=== PATIENT | male | born 1960 | race Caucasian/White ===

== ENCOUNTER 2019-08-31 10:06 | Emergency (ER) | payer BC, SELFPAY ==
[2019-08-31] VITALS (7 sets, daily range): BP systolic 90–152; BP diastolic 64–90; PULSE 71–78; RESP 18; TEMP 37.3; O2SAT 98
--- NOTE | 2019-08-31 10:24 | ED.GENADULT ---
HPI - General Adult General Chief complaint: Upper Respiratory Infection Stated complaint: Congestion Time Seen by Provider: 08/31/19 10:24 Source: patient and RN notes reviewed Mode of arrival: ambulatory Limitations: no limitations History of Present Illness HPI narrative: 58-year-old male presents with complaints of upper respiratory infection, facial congestion, facial pressure, and intermittent headache (not the worst of his life) for the past 11 days. Nyquil without relief. Symptoms increased over the last 24 hours with fatigue and dizziness. No facial swelling. Dry cough. Nasal congestion and rhinorrhea. No sore throat. No high fevers, drooling, neck or throat swelling. No voice change. Nausea and vomiting (last episode this morning approximately @08:30/09:00) without blood or coffee ground contents. No abdominal pain or diarrhea. Tolerating liquids well. Denies chills, dyspnea, difficulty swallowing, jaw pain, dental pain, foreign body sensation, and rash. No chest pain or shortness of breath. Remains active. Complains of dizziness that has been gone on for 1 day. Symptoms increased today. No treatment. Exacerbating factors consist of changing position too fast turning head from side to side too fast. Relieving factors is sitting still. Denies ear pain, ear itching, ear trauma, trauma to head, syncopal episodes, altered vision, altered speech, confusion, or seizure activity. Denies numbness or tingling in extremities. Denies chest pain or dyspnea. Denies fever or chills. Nausea and vomiting (last episode this morning approximately @08:30/09:00) without blood or coffee ground contents. No abdominal pain or diarrhea. Tolerating p.o. intake well. Remains active. Some parts of this dictation were generated by voice recognition software and may contain typographical and/or grammatical inaccuracies. Onset (ago): day(s) (11) Location: head and face Radiation: non-radiation Severity: moderate Severity scale (1-10): 10 Quality: constant and other (pressure) Pain Consistency: constant Exacerbating factors: other (palpation) Associated symptoms: cough, headaches and other (fatigue) Treatments prior to arrival: other (Nyquil) Related Data Home Medications Medication Instructions Recorded Confirmed lisinopril 08/31/19 oseltamivir mg 08/31/19 Allergies Allergy/AdvReac Type Severity Reaction Status Date / Time Neoprene Allergy Mild Uncoded 08/31/19 10:21 Processed Meats Allergy Mild Uncoded 08/31/19 10:21 Review of Systems Review of Systems: Narrative: CONSTITUTIONAL: Complains of fatigue. Denies fever, chills, sweats. EYES: Denies visual changes, redness, discharge. ENT: Complains of rhinorrhea, congestion, facial congestion and pressure. Denies sore throat, otalgia. CARDIOVASCULAR: Denies chest pain, palpitations, edema. RESPIRATORY: Denies dyspnea, wheezing. Complains of dry cough/intermittent productive cough. GASTROINTESTINAL: Denies abdominal pain, diarrhea. Complains of nausea, vomiting GENITOURINARY: Denies dysuria, hematuria, abnormal discharge SKIN: Denies rash or itching. MUSCULOSKELETAL: Denies acute back pain, joint pain, or myalgia. NEUROLOGIC: Denies numbness, or focal weakness. Complains of dizziness and intermittent DAVE. PSYCHIATRIC: Denies anxiety or depression. [facility] Past Medical History Medical History (Updated 08/31/19 @ 12:29 by BESSY Chance) History of gastroesophageal reflux (GERD) Hypertension Surgical History Surgical History (Updated 08/31/19 @ 12:29 by BESSY Chance) Hx of reconstruction of anterior cruciate ligament tear Left Family History Family History (Updated 08/31/19 @ 12:31 by BESSY Chance) Other No significant family history Social History Social History (Updated 08/31/19 @ 12:32 by BESSY Chance) Smoking status: Light tobacco smoker Tobacco type: cigars Second hand tobacco smoke exposure: No Alcohol
--- NOTE | 2019-08-31 10:54 | ECG_ITS ---
Measurements Intervals [place] Rate: 71 P: 54 VA: 178 QRS: 29 QRSD: 100 T: 28 QT: 408 QTc: 444 Interpretive Statements SINUS RHYTHM BASELINE ARTIFACT- I, III, AVL, AVF NORMAL ECG Electronically Signed On 08-31-2019 12:21:59 CDT by Juan Vines D.O.
[2019-08-31] MEDS: ONDANSETRON HCL ODT 4 MG TABLET PO (11:01)
[2019-08-31] MEDS: MECLIZINE HCL 25 MG TABLET PO (11:01)
--- NOTE | 2019-08-31 11:24 | PC.NURSE ---
Resting quietly after Zofran and Meclizine given. No further nausea or emesis.
[2019-09-01 10:25] LABS: Glucose Point of Care 101 (65-105)
== END 2019-08-31 11:45 | disposition home or self-care (01) ==
PROVIDERS: Emergency Provider Nurse Practitioner Family
DX: H81.10 Benign paroxysmal vertigo, unspecified ear (principal); J01.10 Acute frontal sinusitis, unspecified; F17.290 Nicotine dependence, other tobacco product, uncomplicated; K21.9 Gastro-esophageal reflux disease without esophagitis; I10 Essential (primary) hypertension
CPT/HCPCS: 82948; 93005; 99213; A9270; G0463

== ENCOUNTER 2021-07-11 22:12 | Emergency (ER) | payer BC, SELFPAY ==
[2021-07-11 22:15] VITALS: BP 117/71; PULSE 117; RESP 20; TEMP 36.4; O2SAT 96
--- NOTE | 2021-07-11 22:27 | ED.ALLEREA ---
HPI - Allergic Reaction General Chief complaint: Allergic Reaction Stated complaint: allergic reaction Time Seen by Provider: 07/11/21 22:27 Source: patient Mode of arrival: ambulatory Limitations: no limitations History of Present Illness HPI narrative: Patient is a 60-year-old male complaining of rash all over accompanied by itching and feels like my throat is tight that started tonight after eating barbecue meat. Patient states that rash and itchiness would occasionally occur when he eats barbecue meat, but when he takes Benadryl it would resolve but this time persisted. Patient denies any lip, tongue or throat swelling. Patient denies any chest pain or shortness of breath. Related Data Home Medications Medication Instructions Recorded Confirmed lisinopril 08/31/19 oseltamivir mg 08/31/19 Allergies Allergy/AdvReac Type Severity Reaction Status Date / Time Neoprene Allergy Mild Other Uncoded 07/11/21 22:19 Processed Meats Allergy Mild Other Uncoded 07/11/21 22:19 Review of Systems Review of Systems: All systems reviewed & are unremarkable except as noted in HPI and below Constitutional: Constitutional: Denies body ache(s), Denies chills, Denies excessive sweating, Denies fatigue, Denies fever(s), Denies headache(s), Denies lethargy, Denies malaise, Denies weakness and Denies weight loss Eyes: Eyes: Denies blurry vision, Denies change in vision and Denies loss of vision ENT: Denies dizziness, Denies ear discharge, Denies headache(s), Denies lip swelling, Denies epistaxis, Denies nasal congestion, Denies neck pain, Denies throat swelling and Denies tongue swelling Cardiovascular: Cardiovascular: Denies chest pain, Denies chest pain at rest, Denies chest pain with activity, Denies diaphoresis, Denies rapid heart rate, Denies edema, Denies irregular heart rhythm, Denies lightheadedness, Denies palpitations, Denies dyspnea and Denies dyspnea on exertion Respiratory: Respiratory: Denies chest congestion, Denies cough, Denies hemoptysis, Denies dyspnea and Denies dyspnea on exertion Gastrointestinal: Gastrointestinal: Denies abdominal pain, Denies melena, Denies hematochezia, Denies diarrhea, Denies nausea, Denies vomiting and Denies hematemesis Musculoskeletal: Musculoskeletal: Denies abnormal gait, Denies deformity, Denies joint swelling, Denies limited range of motion, Denies neck pain and Denies numbness Neurologic: Denies Abnormal speech present, Denies abnormal gait, Denies confusion, Denies dizziness, Denies headache(s), Denies focal weakness, Denies loss of vision, Denies numbness, Denies Other visual disturbances, Denies Sensory deficit (Neuro) and Denies weakness Psychiatric: Psychiatric: Denies confusion, Denies depression, Denies auditory hallucinations, Denies homicidal ideation and Denies suicidal ideation Endocrine: Endocrine: Denies cold intolerance, Denies excessive sweating, Denies fatigue, Denies heat intolerance and Denies palpitations Hematologic/Lymphatic: Hematologic/Lymphatic: Denies easy bleeding and Denies easy bruising Allergic/Immunologic: Allergic/Immunologic: Denies lip swelling, Denies throat swelling and Denies tongue swelling PMFSH Past Medical History Medical History History of gastroesophageal reflux (GERD) Hypertension Surgical History Surgical History Hx of reconstruction of anterior cruciate ligament tear Left Family History Family History Other No significant family history Social History Social History Smoking status: Light tobacco smoker Tobacco type: cigars Second hand tobacco smoke exposure: No Alcohol intake: current Alcohol use details: Occasional Substance use: never 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
[2021-07-11] MEDS: FAMOTIDINE 20 MG/2 ML VIAL IV PUSH (22:46)
[2021-07-11] MEDS: diphenhydrAMINE HCl INJ 50 MG/ML VIAL 25 MG IV PUSH (22:46)
[2021-07-11] MEDS: methylPREDNISolone SOD SUCC 125 MG VIAL IV PUSH (22:46)
[2021-07-11] MEDS: EPINEPHrine HCL INJ 1 MG/ML AMPUL 0.3 MG SUB-Q (22:52)
[2021-07-11 23:01] VITALS: BP 127/68; PULSE 67; RESP 18; O2SAT 99
[2021-07-11 23:13] VITALS: BP 125/88; PULSE 68; RESP 15; O2SAT 97
== END 2021-07-11 23:26 | disposition home or self-care (01) ==
LOC: ANHED 22:36
PROVIDERS: Emergency Provider Emergency Medicine
DX: T78.40XA Allergy, unspecified, initial encounter (principal); K21.9 Gastro-esophageal reflux disease without esophagitis; I10 Essential (primary) hypertension; F17.290 Nicotine dependence, other tobacco product, uncomplicated
CPT/HCPCS: 96372; 96374; 96375; 99284; J0171; J1200; J2930

== ENCOUNTER 2024-01-13 08:02 | Emergency (ER) | payer BC, SELFPAY ==
--- NOTE | 2024-01-13 08:23 | ED.SKABFB ---
HPI - Skin/Abscess/Foreign Bdy General Chief complaint: Skin/Abscess/Foreign Body Stated complaint: ALLERGIC REACTION/ITCHING/HIVES Time Seen by Provider: 01/13/24 08:17 Source: patient, RN notes reviewed and old records reviewed Mode of arrival: ambulatory Limitations: no limitations History of Present Illness HPI narrative: Patient presents today complaining of an allergic reaction. States he ate some kababs last night and started with a pruritic rash around 3:00 a.m.. At that time he took 2 Benadryl and took 1 more around 430. These did not help, but patient states they at least 2 years ago. At this time he denies any shortness of breath or difficulty swallowing. States he believes he is allergic to some spices, but has not been able to pinpoint which one. He has had an allergic reaction in the past to some barbecue per his chart review. Related Data Home Medications Medication Instructions Recorded Confirmed ezetimibe 10 mg tablet 10 mg PO DAILY 01/13/24 01/13/24 losartan 100 mg tablet 100 mg PO DAILY 01/13/24 01/13/24 Allergies Allergy/AdvReac Type Severity Reaction Status Date / Time Neoprene Allergy Mild Other Uncoded 01/13/24 08:11 Processed Meats Allergy Mild Other Uncoded 01/13/24 08:11 Review of Systems Review of Systems: CONSTITUTIONAL: Denies body aches, fever, chills, or sweats. EYES: Denies visual changes, redness, or discharge. ENT: Denies rhinorrhea, congestion, sore throat, or otalgia. CARDIOVASCULAR: Denies chest pain, palpitations, or edema. RESPIRATORY: Denies cough or dyspnea. GASTROINTESTINAL: Denies abdominal pain, nausea, vomiting, or diarrhea. GENITOURINARY: Denies dysuria or hematuria. SKIN: + pruritic rash MUSCULOSKELETAL: Denies back pain, joint pain, or myalgia. NEUROLOGIC: Denies headache, numbness, tingling, or weakness. PSYCH: Denies depression or anxiety. 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 Please see nursing chart for further information. There is no relevant family history pertinent to the presenting complaint Exam Narrative: GENERAL: Well-appearing, well-nourished, and in no acute distress. HEAD: Normocephalic, atraumatic. EYES: EOMI. No redness or drainage. Conjunctivae normal. ENT: Mucous membranes pink and moist. Throat normal. Uvula midline. NECK: Normal AROM. CHEST: No respiratory distress. Clear to auscultation. HEART: Regular rate and rhythm. No murmur appreciated. EXTREMITIES: Normal range of motion. No edema. SKIN: Warm, dry. Capillary refill normal. Normal skin turgor. Widespread erythematous urticarial rash to the chest, abdomen, back, bilateral buttocks. NEURO: No focal deficits. Alert and oriented x3. Gait steady. PSYCH: Normal affect. No signs of depression or anxiety. Course Course Emergency Course: Patient given an IM dose of dexamethasone to help with his rash. Will start prednisone tomorrow Level of Care: Express Care Visi
[2024-01-13 08:24] VITALS: BP 125/85; PULSE 87; RESP 18; TEMP 36.3; O2SAT 99
[2024-01-13] MEDS: dexAMETHasone SOD PHOS INJ 10 MG/ML 1 ML VIAL IM (08:29)
== END 2024-01-13 08:43 | disposition home or self-care (01) ==
PROVIDERS: Emergency Provider Nurse Practitioner; PCP Family Medicine
DX: L50.9 Urticaria, unspecified (principal); F17.290 Nicotine dependence, other tobacco product, uncomplicated; K21.9 Gastro-esophageal reflux disease without esophagitis; I10 Essential (primary) hypertension
CPT/HCPCS: 96372; 99213; G0463; J1100

== ENCOUNTER 2024-10-22 01:28 | Day surgery (SDC) | payer BC, SELFPAY ==
[2024-10-11 12:47] VITALS: BMI 33.0
--- OUTSIDE RECORDS SUMMARY | 2024-10-22 01:31 | XMS_ITS | Patient Health Record ---
Author Organization [facility] ([address]) Address [address] [place] [address] Care Team Providers Care Glove Operator Name Role Phone Estefania Benjamín Primary Care Provider Unavaillucinda e Ruchi Fajardo Unavailable [phone] Dr. Ward Harris Unavailable [phone] Allergies No Known Allergies Results Component Value Reference Range Notes -F218 Paprika Reviewed date:02/16/2024 12:29:27 PM Interpretation: Performing Lab:[facility] [address] [id number], Phone - [phone], Director - Blake Notes/Report: [id number] Paprika/Sweet Pepper <0.10 Class 0 kU/ L -F026 Pork Reviewed date:02/16/2024 12:19:26 PM Interpretation:Abnormal Performing Lab:[facility] [address] [id number], Phone - [phone], Director - Blake Notes/Report: [id number] Pork 14.00 Class IV kU/L Levels of Specific IgE Class Description of Class ----- < 0.10 0 Negative 0.10 - 0.31 0/I Equivocal/Low 0.32 - 0.55 I Low 0.56 - 1.40 II Moderate 1.41 - 3.90 III High 3.91 - 19.00 IV Very High 19.01 - 100.00 V Very High >100.00 Very High -F088 Casey Reviewed date:02/16/2024 12:19:17 PM Interpretation:Abnormal Performing Lab:[address] [id number], Phone - [phone], Director - CAJagjit Notes/Report: [id number] Casey 19.00 Class IV kU/L -F027 Beef Reviewed date:02/16/2024 12:19:06 PM Interpretation:Abnormal Performing Lab:[address] [id number], Phone - [phone], Director - [facility] Notes/Report: [id number] Beef 31.80 Class V kU/L -Immunoglobulin E, Total Reviewed date:02/16/2024 12:18:50 PM Interpretation:Normal Performing Lab:[address] [id number], Phone - [phone], [facility] Notes/Report: Immunoglobulin E, Total 132 6-495 IU/mL R334-LwZ Alpha-Gal Reviewed date:02/16/2024 12:18:42 PM Interpretation:Abnormal Performing Lab:[address] [id number], Phone - [phone], [facility] Notes/Report: [id number] Alpha-Gal 52.70 Class V kU/L Reason For Referral No Information Medications Medication SIG (Take, Route, Frequency, Duration) Notes Start Date End Date Status Multi Vitamin - 1 tablet Orally Once a day Active Vitamin C 500 MG as directed Orally Active Omeprazole 20 MG 1 capsule 30 minutes before morning meal Orally Once a day Active Ezetimibe 10 MG 1 tablet Orally Once a day Active EPINEPHrine 0.3 MG/0.3ML as directed Inj ection 1 for 1 days 02/08/2024 Active Fish Oil 500 MG 1 capsule Orally Thr ee times a day Active Losartan Potassium 100 MG 1 tablet Orally Once a day Active Social History Tobacco Use: Social History Observation Description Date Details (start date - stop date) Never Smoker NA - NA Tobacco Control (Standard) Question Answer Notes Tobacco use: Nonsmoker Problems Problem Type SNOMED Code ICD Code Onset Dates Problem Status W/U Status Risk Notes Problem Allergy to insect allergen (626116302) Other insect allergy status (Z91.038) Active confirmed Vital Signs Oximetry 99 % 02/08/2024 Blood pressure diastolic 85 mm Hg 02/08/2024 Height 73 in 02/08/2024 Blood pressure systolic 138 mm Hg 02/08/2024 Weight 253.8 lbs 02/08/2024 BMI 33.48 kg/m2 02/08/2024 Encounters Encounter Location Date Provider Diagnosis [place] [address] 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 Labs ordered as above for further evaluation. For now, strict avoidance of pork, beef and casey. EpiPen to be available at all times. A copy of this consultation report was sent to the requesting physician. 02/08/2024 Other insect allergy status (ICD-10 - Z91.038) recommend future venom skin testing and immunotherapy if needed. EpiPen to be aviable at all times and we discussed proper use of the device. 02/08/2024 Other Plan Of Treatment Pending Test Test Name Order Date -Klqcoamzy-mcqwx-4, 3-galactose IgE 09/2023 Insurance Providers Payer Name Payer Address Payer Phone Subscriber Number Group Number Insured Name Patient Relationship to Insured Coverage Start Date Coverage End Date [facility] [id number] [place] [address] [id number] mattie boudreaux Spouse - patient is the spouse of the insured Medical (General) History Medical History History ICD Code Hyperlipidemia Hypertension Surgical History Surgery Date(Month/Year) Eye Surgery 2022 cataract removal 2023
--- OUTSIDE RECORDS SUMMARY | 2024-10-22 01:31 | XMS_ITS | Clinical Summary ---
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 Gender Identity Not on file Sexual Orientation Not on file Last Filed Vital Signs Vital Sign Reading Time Taken Comments Blood Pressure 142/80 04/29/2020 10:11 AM EDUCATIONAL SPEECH LANGUAGE CLINICIAN Pulse 66 04/29/2020 10:11 AM EDUCATIONAL SPEECH LANGUAGE CLINICIAN Temperature 37 C (98.6 F) 04/29/2020 10:11 AM EDUCATIONAL SPEECH LANGUAGE CLINICIAN Respiratory Rate 18 04/29/2020 10:11 AM EDUCATIONAL SPEECH LANGUAGE CLINICIAN Oxygen Saturation 98% 04/29/2020 10:11 AM EDUCATIONAL SPEECH LANGUAGE CLINICIAN Inhaled Oxygen Concentration - - Weight 111.1 kg (245 lb) 04/29/2020 10:11 AM EDUCATIONAL SPEECH LANGUAGE CLINICIAN Height - - Body Mass Index - - Plan of Treatment Health Maintenance Due Date Last Done Comments Hepatitis C Virus (HCV) Screening 1961 Colonoscopy 2006 Colorectal Cancer Screening 2006 Cologuard 09/16/2011 Immunochemical Fecal Occult Blood 09/16/2011 Pneumococcal Immunization (5 0+ years) (1 of 1 - PCV) 09/16/2011 Zoster Immunization (1 of 2) 09/16/2011 PSA Discussion 2016 Influenza Immunization (#1) 2024 05/10/2019 SARS-COV-2 Immunization (1 - 2023-25 season) 2024 Respiratory Syncytial Virus (RSV) Immunization (Adult) (1 - 1-dose 75+ series) 2036 DTaP/Tdap/Td Immunization Discontinued 11/17/2018 TdaP Immunization Completed 11/17/2018 Hepatitis B Immunization Aged Out No longer eligible based on patient's age to complete this topic Meningococcal Immunization (ACWY) Aged Out No longer eligible based on patient's age to complete this topic Pneumococcal Immunization Combined Aged Out No longer eligible based on patient's age to complete this topic Rotavirus Immunization Aged Out No lo nger eligible based on patient's age to complete this [place] [address] [place] [address] [facility] Care Teams Backup Sawyer Relationship Specialty Start Date End Date Provider, Unknown UNKNOWN PCP - General 04/29/20
--- OUTSIDE RECORDS SUMMARY | 2024-10-22 01:31 | XMS_ITS | Data Portability ---
Author Organization [facility] Address [address] [place] [address] Assessment No assessment recorded. Plan of Treatment Reminders Order Date Submit Date Provider Last Modified By Organization Details Last Modified Time Details Appointments None recorded. Lab chlamydia trachomatis , culture, unspecified specimen 2024 025 [facility], [address] [place] [address] 2, [place], [address], 5 09:42:24 neisseria gonorrhoeae , culture, unspecified specimen 2024 025 [facility], [address] [facility] [address], [place], [address], 5 09:42:41 Referral None recorded. Procedures None recorded. Surgeries None recorded. Imaging None recorded. Medication Orders None recorded. Patient TargetsNo targets recorded. Patient InstructionsNo instructions recorded. Reason for Referral None Reported. Results Created Date Observation Date Name Description Value Unit Range Abnormal Flag Note LastModifiedBy Organization Detail LastModifiedTime 07/24/1907/28/2024 CHLAM YDIA TRACH OMATI S CULTU RE chlamydia trachomatis culture NEGATI VE Not Available [facility] ([facility]) [address], [place], [address], 07/28/2024 16:10:52 07/24/1907/28/2024 GC CULTU RE ONLY GC culture only FINAL REPORT Speci men stabi lity note: A swab trans port (ie., ESwab , Amies agar gel) recei dayne by the lab more than 24 hours after colle ction may resul t in reduc ed recov corazon of Neiss eria gonor rhoea e (GC). (This is infor matio nal only and may not apply to this speci men.) Not Available [facility] ([facility]) [address], [place], [address], 07/28/2024 16:10:53 07/24/19 25 07/28/2024 GC CULTU RE ONLY result 1 COMMEN T No Neiss eria gonor rhoea e isola leyla. Not Available [facility] ([facility]) [address], [place], [address], 07/28/2024 16:10:53 Result Notes None recorded. Problems Name Problem SNOMED Code Status Onset Date Resolution Date Notes Provider Name and Address Organization Details Recorded Time Hyperlipidemia 37160814 Active 2024 Johanna nguyen [facility] 5 14:20:40 Hypertensive disorder 23957938 Active 2024 Johanna nguyen [facility] 14:21:04 Problem Notes None recorded. Medical Equipment None Reported. Allergies No known drug allergies Medications Not known to be on any medication Vitals Date Recorded Body weight Heart rate Body mass index (BMI) Body height Systolic blood pressure Diastolic blood pressure Provider Name and Address Organization Details Last Updated DateTime 5 333228. 04 g 77 /min 35.9 kg/m2 180.34 cm 191 mm[Hg] 106 mm[Hg] Johanna Weinstein [facility] 5 14:19:50 Social History None recorded. Functional Status None recorded. Mental Status None recorded. Family History Relationship Description Onset Age of this Age Resolved Age Notes LastModified by Organization Details LastModified Time Father No current problems or disability Not available 07/24 14:21:07 Mother No current problems or disability [email or web address] Not available 07/24 14:21:07 Medical History No medical history recorded. Past Encounters Encounter ID Performer Location Encounter Start Date Encounter Closed Date Diagnosis/Indication Diagnosis SNOMED-CT Code Diagnosis ICD10 Code Diagnosis Note [id number] MD Rick Bowen 14 [address] [facility] [place] [address] 07/24/2024 14:01:34 07/25/2024 07:33:06 High risk sexual behavior 850380923 Z72.51 1. STD testing done per pt request 2. Educated pt on STD prevention , Condom use 3. Pt verbalized understand ing 4. Will follow up pending lab results, as needed or at next annual Health Concerns Section Related Observation LastModified by Organization Detai ls LastModified Time None Recorded Concern Status LastModified by Organization Details LastModified Time None Recorded Advance Directives Directive None Recorded Payers Encounter Date Sequence Insurance Name Policy Number Policy Win Covered Member ID Win Member ID Guarantor Name 07/24/2024 1 *SELF PAY* Cr aig Camara Notes Date Note Type Note Provider Name and Address Organization Details Recorded Time 07/24/2024 text/html walk in std testing, had oral sex and would like throat swab JACK Oreilly Attn: Accounting,[address] [facility], [place], [address], [facility] 07/24/2024 14:38:06
[2024-10-22 10:40] VITALS: BP 171/76; PULSE 68; RESP 20; TEMP 36.1; O2SAT 98
[2024-10-22 10:47] VITALS: BMI 32.7
[2024-10-22] MEDS: LACTATED RINGERS 1,000 ML 150 ML IV CONT (10:54)
--- NOTE | 2024-10-22 11:36 | PM.HPGS ---
History of Present Illness History of Present Illness Consent: Risks, benefits, and alternatives have been discussed and questions answered. Patient agrees to proceed with procedure. Chief complaint: Dysphagia, unspecified Narrative: Royal Camara is a 64 year old male here for first egd, globus sensation in throat Review of Systems Review of Systems: All systems reviewed & are unremarkable except as noted in HPI and below PMFSH Past Medical History Medical History (Updated 10/22/24 @ 11:37 by Kin Kearney MD) Globus sensation History of gastroesophageal reflux (GERD) Hypertension Surgical History Surgical History Hx of reconstruction of anterior cruciate ligament tear Left Family History Family History Other No significant family history Social History Social History Smoking status: Current every day smoker Tobacco type: cigars Second hand tobacco smoke exposure: No Additional smoking assessment comments: 1-2 per week Alcohol intake: current Drinks per week: 24 Alcohol use details: Occasional Substance use: never Living arrangements: with family Occupation/Education: occupation 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 Gender identity (if verbalized by the patient): Male Spiritual care concerns: No Meds Home Medications and Allergies Home Medications Medication Instructions Recorded Confirmed Type ezetimibe 10 mg tablet 10 mg PO DAILY 01/13/24 10/11/24 History losartan 100 mg tablet 100 mg PO DAILY 01/13/24 10/22/24 History acetaminophen 500 mg capsule 500 mg PO ONCE PRN pain 10/11/24 10/11/24 History epinephrine 0.3 mg/0.3 mL 0.3 ml IM ONCE PRN allergic 10/11/24 10/11/24 History injection, auto-injector reaction ibuprofen 200 mg tablet (IBU-200) 400 mg PO Q4H PRN pain 10/11/24 10/11/24 History omeprazole 20 mg capsule,delayed 20 mg PO DAILY 10/11/24 10/22/24 History release Allergies Allergy/AdvReac Type Severity Reaction Status Date / Time Neoprene Allergy Mild Other Uncoded 10/22/24 10:45 Processed Meats Allergy Mild Other Uncoded 10/22/24 10:45 Exam Const: General: comfortable and no acute distress HENMT: Face/Nose/Sinus: Normal nares present Eyes: General: appearance normal, both eyes and all related structures Neck: Neck: no JVD Resp: Auscultation: clear to auscultation bilaterally Cardio: Rate: regular rate Rhythm: regular rhythm GI: Inspection: non-distended GI Palp: Yes Soft to palpation Skin: General skin exam: normal color Neuro: General: gait normal Speech: normal speech Extrem: General: normal to inspection Psych: Mental Status: mental status grossly normal Assessment and Plan Assessment and plan (1) Globus sensation: Code(s): R09.A2 - Foreign body sensation, throat Status: Acute Assessment and Plan: egd with bx
--- NOTE | 2024-10-22 11:56 | P.PNAN_ITS ---
Anes - Initial Pre Proc Eval Procedure: Operation Date: 10/22/24 14:30 Proposed Procedures p Esophagogastroduodenoscopy EGD - Kin Kearney MD Date/Time: 10/22/24 11:56 Surgeon: Kin Kearney MD Pre Op Diagnosis: Dysphagia, unspecified Patient Data Age: 64 Gender: M Height: 1.85 m Weight: 112.5 kg Allergies Allergy/AdvReac Type Severity Reaction Status Date / Time Neoprene Allergy Mild Other Uncoded 10/22/24 10:45 Processed Meats Allergy Mild Other Uncoded 10/22/24 10:45 Home Medications Medication Instructions Recorded Confirmed Type ezetimibe 10 mg tablet 10 mg PO DAILY 01/13/24 10/11/24 History losartan 100 mg tablet 100 mg PO DAILY 01/13/24 10/22/24 History acetaminophen 500 mg capsule 500 mg PO ONCE PRN pain 10/11/24 10/11/24 History epinephrine 0.3 mg/0.3 mL 0.3 ml IM ONCE PRN allergic 10/11/24 10/11/24 History injection, auto-injector reaction ibuprofen 200 mg tablet (IBU-200) 400 mg PO Q4H PRN pain 10/11/24 10/11/24 History omeprazole 20 mg capsule,delayed 20 mg PO DAILY 10/11/24 10/22/24 History release Patient hx anesthesia problems: none Family hx anesthesia problems: none Results Review: All pre-operative results and documents have been reviewed as part of the pre- operative evaluation. [facility] Past Medical History Medical History Globus sensation History of gastroesophageal reflux (GERD) Hypertension Surgical History Surgical History Hx of reconstruction of anterior cruciate ligament tear Left Family History Family History Other No significant family history Social History Social History Smoking status: Current every day smoker Tobacco type: cigars Second hand tobacco smoke exposure: No Additional smoking assessment comments: 1-2 per week Alcohol intake: current Drinks per week: 24 Alcohol use details: Occasional Substance use: never Living arrangements: with family Occupation/Education: occupation 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 Informed Consent: The patient's anesthetic plan and its attendant risks and benefits were discussed with the patient/family/POA. Questions were solicited and answers provided to the satisfaction of the patient/family/POA.
[2024-10-22] MEDS: BENZOCAINE (*SP) 60 ML SPRAY CAN (HURRICAINE) 1 SPRAY MUCOUS MEM (12:13)
[2024-10-22 12:22] VITALS: BP 140/96; PULSE 77; RESP 30; O2SAT 98
[2024-10-22 12:32] VITALS: BP 134/83; PULSE 70; RESP 19; O2SAT 98
[2024-10-22 12:42] VITALS: BP 152/94; PULSE 61; RESP 16; O2SAT 98
== END 2024-10-22 12:49 | disposition home or self-care (01) ==
PROVIDERS: PCP Family Medicine; Referring Provider Family Medicine; Visit Provider Internal Medicine Gastroenterology
PROC: 0DJ08ZZ Inspection of Upper Intestinal Tract, Via Natural or Artificial Opening Endoscopic (ICD-10-PCS; CPT 43239; principal; 2024-10-22 14:30)
DX: R09.A2 Foreign body sensation, throat (principal); F17.290 Nicotine dependence, other tobacco product, uncomplicated
CPT/HCPCS: 43239; 88305; J2003; J2704; J7120

== ENCOUNTER 2025-05-22 19:22 | Emergency (ER) | payer BC, SELFPAY ==
--- OUTSIDE RECORDS SUMMARY | 2025-05-22 19:24 | XMS_ITS | Patient Health Record ---
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 Name Role Phone Benjamín Mac Primary Care Provider Unavailabl e Allergies No Known Allergies Reason For Referral No Information Medications Medication [...] EPINEPHrine 0.3 MG/0.3ML as directed Inj ection 1; Duration: 1 days 02/08/2024 Active Fish Oil 500 [...] Risk Notes Problem Allergy to insect allergen (813097866) Other insect allergy status (Z91.038) Active confirmed Plan Of Treatment Pending Test Test Name Order Date -Zfrjqkxqe-wryqx-7, 3-galactose IgE 09/2023 Insurance Providers Payer Name Payer Address Payer Phone Subscriber Number Group Number Insured Name Patient Relationship to Insured Coverage Start Date [facility] End Date [facility] [address] [place] [address] [phone] [id number] boudreaux Spouse - patient is the spouse of the insured Medical (General) History Medical History History ICD Code Hyperlipidemia Hypertension Surgical History Surgery Date(Month/Year) Eye Surgery 2022 cataract removal 2023
[2025-05-22 19:25] VITALS: BP 176/93; PULSE 87; RESP 16; TEMP 36.4; O2SAT 100
--- NOTE | 2025-05-22 21:18 | ED.ALLEREA ---
HPI - Allergic Reaction General Chief complaint: Allergic Reaction Stated complaint: allergic reaction Time Seen by Provider: 05/22/25 21:06 History of Present Illness HPI narrative: 64-year-old male with a history of vague allergic reactions in the past. He does carry an epinephrine pen with him. He states he was doing yd work and contacting several different positive leaves with body and then started getting diffuse urticarial rash over his body, back, face and neck. No difficulty breathing. No nausea, vomiting, abdominal upset her GI distress. He took 50 of Benadryl and feels much better but still has the rash. No longer itching or having other symptoms. He states he gets vague allergic reactions like this in the past. Has seen an manager fund. Did not uses EpiPen is a did not feel like he was having anaphylaxis. Was otherwise in his normal state of health and states he just wants some steroids as that has helped him in the past. Related Data Home Medications ?Medication ?Instructions ?Recorded ?Confirmed ?Last Taken ?Type ezetimibe 10 mg tablet 10 mg PO DAILY 01/13/24 10/11/24 Unknown History losartan 100 mg tablet 100 mg PO DAILY 01/13/24 10/22/24 10/21/24 History acetaminophen 500 mg capsule 500 mg PO ONCE PRN pain 10/11/24 10/11/24 Unknown History epinephrine 0.3 mg/0.3 mL 0.3 ml IM ONCE PRN allergic 10/11/24 10/11/24 Unknown History injection, auto-injector reaction ibuprofen 200 mg tablet (IBU-200) 400 mg PO Q4H PRN pain 10/11/24 10/11/24 Unknown History omeprazole 20 mg capsule,delayed 20 mg PO DAILY 10/11/24 10/22/24 10/21/24 History release Allergies Allergy/AdvReac Type Severity Reaction Status Date / Time No Known Allergies Allergy Verified 05/22/25 19:31 Review of Systems Review of Systems: As reviewed above in HPI All systems reviewed & are unremarkable except as noted in HPI and below PMFSH Past Medical History Medical History Globus sensation History of gastroesophageal reflux (GERD) Hypertension Surgical History Surgical History Hx of reconstruction of anterior cruciate ligament tear Left Family History Family History Other No significant family history Social History Social History Smoking status: Current every day smoker Tobacco type: cigars Second hand tobacco smoke exposure: No Additional smoking assessment comments: 1-2 per week Alcohol intake: current Drinks per week: 24 Alcohol use details: Occasional Substance use: never Living arrangements: with family Occupation/Education: occupation 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 Mucous membranes moist. NECK: Supple. CHEST: [Clear to auscultation. No respiratory distress.] HEART: [Regular rate and rhythm]. No murmur heard. [Normal peripheral pulses.] ABDOMEN: [Soft, nondistended], [nontender], [No rigidity or guarding] EXTREMITIES: Normal range of motion. [No edema.] SKIN: Diffuse urticaria over the trunk, face, back, arms. Spares the legs. Blanches with palpation. NEURO: [No focal deficits]. Alert and oriented [x3.] PSYCH: [Normal mood and affect.] Course Vital Signs Vital signs: Vital Signs Temperature 36.4 C 05/22/25 19:25 Pulse Rate 87 05/22/25 19:25 Respiratory Rate 16 05/22/25 19:25 Blood Pressure 176/93 H 05/22/25 19:25 Pulse Oximetry 100 05/22/25 19:25 Oxygen Delivery Room Air 05/22/25 19:25 Temperature 36.4 C 05/22/25 19:25 Pulse Rate 71 05/22/25 21:33 Respiratory Rate 18 05/22/25 21:33 Blood Pressure 131/90 05/22/25 21:33 Pulse Oximetry 98 05/22/25 21:33 Oxygen Delivery Room Air 05/22/25 21:25 MDM MDM Narrative Medical decision making narrative: 64-year-old male with a history of vague allergic reactions in the past. He does carry an epinephrine pen with him. He states he was doing yd work and contacting several different positive leaves with body and then started getting diffuse urticarial rash over his body, back, face and neck. No difficulty breathing. No nausea, vomiting, abdominal upset her GI distress. He took 50 of Benadryl and feels much better but still has the rash. No longer itching or having other symptoms. He states he gets vague allergic reactions like this in the past. Has seen an manager fund. Did not uses EpiPen is a did not feel like he was having anaphylaxis. Was otherwise in his normal state of health and states he just wants some steroids as that has helped him in the past. Diffuse urticaria over the trunk, face, back, arms. Spares the legs. Blanches with palpation. Patient has no signs of any respiratory distress or any GI upset. He is afebrile with unremarkable vital signs aside from some chronic hypertension. Patient states he feels much better after Benadryl and usually gets steroids as well. He was given intramuscular Decadron and observed briefly. He has an epinephrine pen at home and knows what to watch out for and given strict return precautions. Safe for discharge and started on prednisone for several days upon discharge. Differential Diagnosis Differential Diagnosis: Urticaria, contact dermatitis, hypersensitivity Discharge Plan Discharge Clinical Impression: Urticaria, Allergic reaction Patient Disposition: Home Condition: Stable Instructions: Antibiotic Form, Acute Rash (ED), Allergies (ED) Additional Instructions: Symptoms consistent with urticaria and allergic reaction. We have sent you home with steroids and given you a steroid shot here. You can also take additional 50 mg Benadryl every 8 hours as needed for itchiness. He can also take 20 mg of Pepcid/famotidine which can help with histamine reactions as well. If you start getting severe symptoms at home such as throat closing sensations, difficulty breathing or worsening symptoms you can use your epinephrine pen and return to the emergency department at that time. Patient Language: Yakut Prescriptions: New prednisone 50 mg tablet 50 mg PO DAILY 5 Days Qty: 5 0RF No Action losartan 100 mg tablet 100 mg PO DAILY ezetimibe 10 mg tablet 10 mg PO DAILY omeprazole 20 mg capsule,delayed release(DR/EC) 20 mg PO DAILY epinephrine 0.3 mg/0.3 mL auto-injector 0.3 ml IM ONCE PRN (Reason: allergic reaction) acetaminophen 500 mg capsule 500 mg PO ONCE PRN (Reason: pain) ibuprofen [IBU-200] 200 mg tablet 400 mg PO Q4H PRN (Reason: pain) Follow-up/Referrals: Estefania,Benjamín Fry MD [Primary Care Provider, Unknown] Time of Disposition: 21:24
[2025-05-22 21:33] VITALS: BP 131/90; PULSE 71; RESP 18; O2SAT 98
[2025-05-22] MEDS: dexAMETHasone SOD PHOS INJ 10 MG/ML 1 ML VIAL IM (21:35)
== END 2025-05-22 21:42 | disposition home or self-care (01) ==
PROVIDERS: Emergency Provider Student in an Organized Health Care Education/Training Program; PCP Family Medicine
DX: L50.0 Allergic urticaria (principal); T78.40XA Allergy, unspecified, initial encounter; I10 Essential (primary) hypertension; K21.9 Gastro-esophageal reflux disease without esophagitis; F17.290 Nicotine dependence, other tobacco product, uncomplicated; X58.XXXA Exposure to other specified factors, initial encounter
CPT/HCPCS: 96372; 99283; J1100